=== PATIENT | female | born 1970 | race Caucasian/White ===

== ENCOUNTER 2017-05-27 11:46 | Emergency (ER) | payer OTHER ==
[2017-05-27 11:54] VITALS: TEMP 98.3; BMI 22.3
--- NOTE | 2017-05-27 11:57 | PDOC ---
History of Present Illness - General Chief Complaint: Pain, Acute Stated Complaint: BACK PAIN, VOMITING Time Seen by Provider: 05/27/17 11:56 - History of Present Illness Initial Comments: 05/27/17 12:09 Ms. Lennon is a 46 yo female w/ pmh of spiral stenosis and prior kidney stones who presents c/o a 3 day history of nausea, vomiting, and left sided flank pain. She reports the vomit consists of whatever she has eaten and that the pain feels similar in character to her prior kidney stones. She has taken NSAID's at home for the pain without effect. She also reports recent dysuria over this same time period. The patient denies chest pain, shortness of breath, headache and dizziness. Denies fever, chills, diarrhea and constipation. Denies frequency, urgency and hematuria. Allergies: NKDA Past History - Past Medical History Allergies/Adverse Reactions: Allergies Allergy/AdvReac Type Severity Reaction Status Date / Time No Known Allergies Allergy Unverified 05/27/17 11:54 Home Medications: Ambulatory Orders Levofloxacin 750 mg PO DAILY 5 Days #5 tablet 05/27/17 Naproxen 500 mg PO BID PRN #10 tablet 05/27/17 COPD: No - Immunization History Immunization Up to Date: Yes - Suicide/Smoking/Psychosocial Hx Smoking History: Never smoked Have you smoked in the past 12 months: Yes Number of Cigarettes Smoked Daily: 0 Information on smoking cessation initiated: No 'Breaking Loose' booklet given: 12/27/13 Review of Systems - Review of Systems Comments:: 05/27/17 12:12 GENERAL/CONSTITUTIONAL: No fever or chills. No weakness. HEAD, EYES, EARS, NOSE AND THROAT: No change in vision. No ear pain or discharge. No sore throat. CARDIOVASCULAR: No chest pain or shortness of breath RESPIRATORY: No cough, wheezing, or hemoptysis. GASTROINTESTINAL: +Nausea w/ coinciding vomiting as described. No diarrhea or constipation. GENITOURINARY: +Dysuria w/ right flank pain over last 3 days MUSCULOSKELETAL: No joint or muscle swelling or pain. No neck or back pain. SKIN: No rash NEUROLOGIC: No headache, vertigo, loss of consciousness, or change in strength/ sensation. ENDOCRINE: No increased thirst. No abnormal weight change HEMATOLOGIC/LYMPHATIC: No anemia, easy bleeding, or history of blood clots. ALLERGIC/IMMUNOLOGIC: No hives or skin allergy. *Physical Exam - Vital Signs Last Vital Signs Temp Pulse Resp BP Pulse Ox 98.3 F 79 20 142/82 99 05/27/17 11:52 05/27/17 11:52 05/27/17 11:52 05/27/17 11:52 05/27/17 11:52 - Physical Exam Comments: 05/27/17 12:12 GENERAL: Awake, alert, and fully oriented, in no acute distress HEAD: No signs of trauma, normocephalic, atraumatic EYES: PERRLA, EOMI, sclera anicteric, conjunctiva clear ENT: Auricles normal inspection, hearing grossly normal, nares patent, oropharynx clear without exudates. Moist mucosa NECK: Normal ROM, supple, no lymphadenopathy, JVD, or masses LUNGS: No distress, speaks full sentences, clear to auscultation bilaterally HEART: Regular rate and rhythm, normal S1 and S2, no murmurs, rubs or gallops, peripheral pulses normal and equal bilaterally. ABDOMEN: +Right CVA tenderness. Abdomen soft, nontender, normoactive bowel sounds. No guarding, no rebound. No masses EXTREMITIES: Normal inspection, Normal range of motion, no edema. No clubbing or cyanosis. NEUROLOGICAL: Cranial nerves II through XII grossly intact. Normal speech, normal gait, no focal sensorimotor deficits SKIN: Warm, Dry, normal turgor, no rashes or lesions noted. ED Treatment Course - LABORATORY CBC & Chemistry Diagram: 05/27/17 12:30 05/27/17 12:30 Medical Decision Making - Medical Decision Making 05/27/17 14:39 Ms. Lennon is a 46 yo female w/ pmh as described who presents w/ R sided flank pain concerning for kidney stone. Spiral CT shows no evidence however of stone, hydronephrosis, or other acute process. Patient given pain control. Some blood noted in urine. Given patient's CVA tenderness will treat for pyelonephritis empirically. 05/27/17 16:26 Discharging patient to home with ABX and naproxen for presumptive diagnosis of pyelonephritis. *DC/Admit/Observation/Transfer Diagnosis at time of Disposition: Flank pain - Discharge Dispostion Disposition: HOME - Referrals Referrals: Eugene Steel MD [Staff Physician] - - Patient Instructions Printed Discharge Instructions: DI for Flank Pain Additional Instructions: Please return if any fever, chills, or pain not controllable with proscribed medications. Follow-up with Dr. Steel's clinic as discussed for further outpatient evaluation. We have sent a prescription to your pharmacy for antibiotics to treat any kidney infection you may have. - Post Discharge Activity
[2017-05-27] MEDS ORDERED: ONDANSETRON 4 MG/2 ML VIAL IVPUSH ONE ×2 (12:08→14:05)
[2017-05-27] MEDS ORDERED: SODIUM CHLORIDE 1,000 ML IV STA (12:08)
[2017-05-27] MEDS ORDERED: HYDROmorphone HCL CARPU-JECT 1 MG/1 ML DISP.SYRIN IVPUSH ONE (12:08)
[2017-05-27] MEDS ORDERED: ONDANSETRON 4 MG/2 ML VIAL ONE ×2 (12:19→14:14)
[2017-05-27] MEDS ORDERED: HYDROmorphone HCl/Pf 2 MG/ML VIAL - FOR OR PYXIS USE ONE ×2 (12:19→15:50)
[2017-05-27 12:50] LABS: BASO % 0.5 % (0-2.0); EOS % 0.5 % (0-4.5); HEMATOCRIT 40.9 % (32.4-45.2); HEMOGLOBIN 13.3 GM/dL (10.7-15.3); LYMPH % 13.5 % (8-40); MCH 27.6 pg (25.7-33.7); MCHC 32.5 g/dl (32.0-36.0); MEAN CELL VOLUME 84.8 fl (80-96); MEAN PLT VOLUME 6.9 fl (7.5-11.1); MONO % 4.1 % (3.8-10.2); NEUT % 81.4 % (42.8-82.8); PLATELET COUNT 444 K/MM3 (134-434); RBC 4.82 M/mm3 (3.60-5.2); RDW 13.5 % (11.6-15.6); WHITE BLOOD COUNT 5.3 K/mm3 (4.0-10.0)
--- NOTE | 2017-05-27 12:52 | PDOC ---
Attending Attestation - Resident Resident Name: Mike Zuniga - ED Attending Attestation I have performed the following: I have examined & evaluated the patient, The case was reviewed & discussed with the resident, I agree w/resident's findings & plan, Exceptions are as noted - HPI HPI: 05/27/17 12:47 46 year old F c/ hx spinal stenosis, kidney stones p/w R flank pain, nausea, and vomiting, dysuria, and hematuria x 2 days. States pain has been persistent. No fevers, chills. No diarrhea. - Physicial Exam PE: 05/27/17 12:51 GENERAL: Awake, alert, and fully oriented. Uncomfortable appearing. HEAD: No signs of trauma EYES: PERRLA, EOMI, sclera anicteric, conjunctiva clear ENT: Auricles normal inspection, hearing grossly normal, nares patent, NECK: Normal ROM, supple LUNGS: Breath sounds equal, clear to auscultation bilaterally. No wheezes, and no crackles HEART: Regular rate and rhythm, normal S1 and S2, no murmurs, rubs or gallops ABDOMEN: +generalized abdominal pain. R sided CVA tenderness. Soft, bowel sounds. No guarding, no rebound. No masses EXTREMITIES: Normal range of motion, no edema. No clubbing or cyanosis. No cords, erythema, or tenderness NEUROLOGICAL: Cranial nerves II through XII grossly intact. Normal speech, normal gait SKIN: Warm, Dry, normal turgor, no rashes or lesions noted. - Medical Decision Making 05/27/17 12:52 Vital Signs Temp Pulse Resp BP Pulse Ox 98.3 F 79 20 142/82 99 05/27/17 11:52 05/27/17 11:52 05/27/17 11:52 05/27/17 11:52 05/27/17 11:52 Differential includes renal colic, pyenephritis, appendicits. Labs, UA CT abdomen and pelvis. CBC, BMP 05/27/17 12:30 05/27/17 12:30 CMP Sodium 137 mmol/L (136-145) 05/27/17 12:30 Potassium 4.6 mmol/L (3.5-5.1) 05/27/17 12:30 Chloride 104 mmol/L (98-107) 05/27/17 12:30 Carbon Dioxide 27 mmol/L (21-32) 05/27/17 12:30 Anion Gap 6 (8-16) L 05/27/17 12:30 BUN 9 mg/dL (7-18) 05/27/17 12:30 Creatinine 0.8 mg/dL (0.55-1.02) 05/27/17 12:30 Creat Clearance w eGFR > 60 (>60) 05/27/17 12:30 Random Glucose 117 mg/dL (74-106) H 05/27/17 12:30 Calcium 8.9 mg/dL (8.5-10.1) 05/27/17 12:30 Total Bilirubin 0.7 mg/dL (0.2-1.0) 05/27/17 12:30 AST 26 U/L (15-37) 05/27/17 12:30 ALT 20 U/L (12-78) 05/27/17 12:30 Alkaline Phosphatase 86 U/L (45-117) 05/27/17 12:30 Total Protein 8.5 g/dl (6.4-8.2) H 05/27/17 12:30 Albumin 4.0 g/dl (3.4-5.0) 05/27/17 12:30 Serum , Qual Negative 05/27/17 12:30 Urine Test Results Urine Color Dk yellow 05/27/17 13:20 Urine Appearance Turbid 05/27/17 13:20 Urine pH 5.0 (5.0-8.0) 05/27/17 13:20 Ur Specific [place] 1.016 (1.001-1.035) 05/27/17 13:20 Urine Protein 1+ (NEGATIVE) H 05/27/17 13:20 Urine Glucose (UA) Negative (NEGATIVE) 05/27/17 13:20 Urine Ketones Negative (NEGATIVE) 05/27/17 13:20 Urine Blood 3+ (NEGATIVE) H 05/27/17 13:20 Urine Nitrite Negative (NEGATIVE) 05/27/17 13:20 Urine Bilirubin Negative (NEGATIVE) 05/27/17 13:20 Ur Leukocyte Esterase Negative (NEGATIVE) 05/27/17 13:20 Ur Epithelial Cells Rare /HPF (FEW) 05/27/17 13:20 Urine Bacteria Many /hpf (NONE SEEN) 05/27/17 13:20 CT with no kidney stones. Will treat as pyelonephritis Abx and follow up with PMD
[2017-05-27 13:11] LABS: ALK PHOS 86 U/L (45-117); ANION GAP 6 (8-16); BILIRUBIN,TOTAL 0.7 mg/dL (0.2-1.0); BLOOD UREA NITROGEN 9 mg/dL (7-18); CALCIUM 8.9 mg/dL (8.5-10.1); CHLORIDE 104 mmol/L (98-107); CO2 27 mmol/L (21-32); CREATININE 0.8 mg/dL (0.55-1.02); GLUCOSE,RANDOM 117 mg/dL (74-106); SGPT/ALT 20 U/L (12-78); SODIUM 137 mmol/L (136-145); TOT PROT 8.5 g/dl (6.4-8.2)
[2017-05-27 13:14] LABS: POTASSIUM 4.6 mmol/L (3.5-5.1)
[2017-05-27 13:15] LABS: SGOT/AST 26 U/L (15-37)
[2017-05-27] MEDS ORDERED: KETOROLAC TROMETHAMINE 30 MG/1 ML VIAL IVPUSH ONE (13:21)
[2017-05-27] MEDS ORDERED: KETOROLAC TROMETHAMINE 30 MG/1 ML VIAL ONE (13:24)
[2017-05-27 13:32] LABS: URINE APPEARANCE TURBID; URINE BILIRUBIN NEGATIVE (NEGATIVE); URINE BLOOD 3+ (NEGATIVE); URINE GLUCOSE (UA) NEGATIVE (NEGATIVE); URINE KETONE NEGATIVE (NEGATIVE); URINE LEUK ESTERASE NEGATIVE (NEGATIVE); URINE NITRITE NEGATIVE (NEGATIVE); URINE UROBILINOGEN NEGATIVE mg/dL (0.2-1.0)
[2017-05-27 13:33] LABS: URINE PROTEIN 1+ (NEGATIVE)
[2017-05-27 13:34] LABS: URINE COLOR DK YELLOW
[2017-05-27 13:43] LABS: EPI CELLS RARE /HPF (FEW); URINE BACTERIA MANY /hpf (NONE SEEN); YEAST MANY
[2017-05-27 14:49] LABS: COCAINE, UR NEGATIVE ng/ml (CUTOFF=300); METHADONE, UR NEGATIVE ng/ml (CUTOFF=300); OPIATES, URI POSITIVE ng/ml (CUTOFF=300); PHENCYCLIDINE,URINE NEGATIVE ng/ml (CUTOFF=25); URINE AMPHETAMINES NEGATIVE ng/ml (CUTOFF=500); URINE BARBITURATES NEGATIVE ng/ml (CUTOFF=200); URINE BENZODIAZEPINES NEGATIVE ng/ml (CUTOFF=200)
[2017-05-27] MEDS ORDERED: HYDROmorphone HCL CARPU-JECT 1 MG/1 ML DISP.SYRIN IVPB ONE (15:21)
[2017-05-27] MEDS ORDERED: METOCLOPRAMIDE HCL INJECTION 10 MG/2 ML VIAL IVPUSH ONE (15:22)
[2017-05-27] MEDS ORDERED: METOCLOPRAMIDE HCL INJECTION 10 MG/2 ML VIAL ONE (15:50)
[2017-05-27 16:38] VITALS: BP 138/76; PULSE 73
== END 2017-05-27 16:38 | disposition home or self-care (01) ==
LOC: JER 11:46
PROC: 3E033NZ Introduction of Analgesics, Hypnotics, Sedatives into Peripheral Vein, Percutaneous Approach (ICD-10-PCS; principal; 2017-05-27)
PROC: 3E0333Z Introduction of Anti-inflammatory into Peripheral Vein, Percutaneous Approach (ICD-10-PCS; 2017-05-27)
PROC: 3E033GC Introduction of Other Therapeutic Substance into Peripheral Vein, Percutaneous Approach (ICD-10-PCS; 2017-05-27)
DX: N12 Tubulo-interstitial nephritis, not specified as acute or chronic (principal); Z87.442 Personal history of urinary calculi; M48.00 Spinal stenosis, site unspecified
CPT/HCPCS: 36415; 74176; 80053; 80307; 81003; 81015; 84703; 85025; 87086; 99284-25